=== PATIENT | male | born 1990 | race Two or more races ===

== ENCOUNTER 2018-04-15 14:44 | Emergency (ER) | payer BC, OTHER ==
[~2018-04-15] VITALS: Ht 185.4 cm; Wt 119.5 kg
[2018-04-15 14:54] VITALS: BP 126/68
== END 2018-04-15 16:51 | disposition home or self-care (01) ==
LOC: ED 15:49
DX: M25.562 Pain in left knee (principal)
CPT/HCPCS: 99284